=== PATIENT | male | born 1990 | race Hispanic/Latino ===

== ENCOUNTER 2017-03-01 18:40 | Emergency (ER) | payer OTHER ==
[~2017-03-01] VITALS: Ht 172.7 cm; Wt 90.9 kg
[~2017-03-01 18:40] MED LIST: HYDR-4003 PO; IBUP800T28 PO
[2017-03-01 18:45] VITALS: BP 176/91; PULSE 167; RESP 16; O2SAT 100
[2017-03-01] MEDS ORDERED: 0.9% Sodium Chloride 1,000 ML IV ONE (18:51)
--- NOTE | 2017-03-01 18:51 | ED.REPORT ---
HPI-Chest Pain Under 40 Date of Service Mar 01, 2017 ED Provider: Evan Jones DO The patient is a 26 year old male w/ a hx of anxiety and colitis who presents to the ED accompanied by his girlfriend due to chest pain onset earlier today. Associated symptoms include tachycardia and SOB. He is very anxious ." Pt describes that his heart begins racing when he goes on walks. The pt smokes marijuana and denies any other drug use. He denies fever, nausea, and vomiting. No history of coronary disease. No history of pulmonary embolus. No family history of aortic dissection. No ripping or tearing pain. Nursing Notes Stated Complaint: CHEST TIGHTNESS/PAIN Chief Complaint: Chest Pain Nursing Notes Reviewed: Yes Allergies: Coded Allergies: No Known Allergies (Unverified , 06/25/16) Scheduled PRN Hydrocodone-Acetaminophen 5-325 mg (Hydrocodone-Acetaminophen 5-325 mg) 1 Each Tablet 1-2 TABLET PO Q4H PRN PRN For Pain Ibuprofen (Ibuprofen) 800 Mg Tablet 800 MG PO TID PRN PRN For Pain General Time Seen by MD: 18:51 Chief Complaint Chest pain Hx Obtained From: Patient Arrived By: Walk-in Sudden in Onset?: Yes Onset Occurred: 1 week ago Symptom Duration: Since onset Location: : Chest left Quality: Painful Recent Healthcare: No recent doctor visit, No recent hospitalization Similar Sx Previous: No Past Medical History Past Medical History Colitis Past Surgical History None Family History Noncontributory Smoking History Never Smoker Social History Alcohol Use: Denies alcohol use Drug Use: Denies drug use (no meth or cocaine use. He does use THC), THC Other Social History: Good social support, , Local resident Ambulatory Status Independent Review of Systems Constitutional: Denies: Fever Respiratory: Denies: Dyspnea on exertion, Shortness of breath Cardiovascular: Reports: Chest pain, Palpitations GI: Denies: Abdominal pain, Diarrhea, Nausea, Vomiting Musculoskeletal: Denies: Back pain, Extremity pain Skin: Denies Bruising Neurologic: Denies: Abnormal movement, Confusion Psychiatric: Reports: Anxiety Complete sys rev & neg: except as marked. Physical Exam Initial Vital Signs Vital Signs (First) Date Time Temp Pulse Resp B/P Pulse Ox O2 Delivery O2 Flow Rate FiO2 03/01/17 18:45 36.7 167 16 176/91 100 Room Air Initial VS: Reviewed Head / Eyes: Atraumatic, Normocephalic ENT: Mucous membranes moist Abdomen / GI: Soft, Non-tender, No guarding, No rebound Extremities: Vascular intact, Neuro intact, No swelling Skin: Warm, Dry General/Constitutional: Awake, Alert Behavior: Positive: Anxious Respiratory / Chest: Atraumatic, Breath sounds NL, Breath sounds = bilat Cardiovascular: Heart rate NL, Regular rhythm, Heart sounds NL Interpretation & Diagnostics Lab Results Interpretation Result Diagram: 03/01/17 1855 03/01/17 1855 Test 03/01/17 18:55 03/01/17 20:04 03/01/17 22:40 White Blood Count 9.7th/mm3 (3.8-10.1) Red Blood Count 5.16mil/mm3 (4.40-5.80) Hemoglobin 15.9g/dL (13.8-17.2) Hematocrit 45.6% (41.0-50.0) Mean Corpuscular Volume 88.4fL (81-100) Mean Corpuscular Hemoglobin 30.8pg (27.0-35.0) Mean Corpuscular Hemoglobin Concent 34.9% (32.0-37.0) Red Cell Distribution Width 14.2% (12.3-15.4) Platelet Count 376bil/L (150-400) Neutrophils (%) (Auto) 57.6% (40-74) Lymphocytes (%) (Auto) 26.5% (14-46) Monocytes (%) (Auto) 11.1% (4-12) Eosinophils (%) (Auto) 4.3% (0-5) Basophils (%) (Auto) 0.3% (0-3) D-Dimer < 0.50mg/L FEU (<0.50) Sodium Level 138mEq/L (134-144) Potassium Level 3.4mEq/L (3.5-5.2) Chloride Level 100mEq/L (97-108) Carbon Dioxide Level 21mmol/L (18-29) Blood Urea Nitrogen 16mg/dL (6-20) Creatinine 0.81mg/dL (0.76-1.27) Estimat Glomerular Filtration Rate 121mL/min (>59) Glucose Level 140mg/dL (60-99) Calcium Level 9.8mg/dL (8.5-10.1) Magnesium Level 2.2mg/dL (1.6-2.6) Total Bilirubin 0.3mg/dL (0.0-1.2) Aspartate Amino Transf (AST/SGOT) 25U/L (0-50) Alanine Aminotransferase (ALT/SGPT) 36U/L (0-44) Alkaline Phosphatase 65U/L (25-150) Total Protein 8.0g/dL (6.4-8.4) Albumin 5.1g/dL (3.4-5.0) Hold Alfonso Top Tube Received (Received) Urine Opiates Screen Negative Urine Methadone Screen Negative Urine Barbiturates Screen Negative Urine Amphetamines Screen Negative Urine Benzodiazepines Screen Negative Urine Cocaine Metabolite Screen Negative Urine Cannabinoids Screen Positive Troponin T 0.010ug/L (0.0-0.011) ECG Interpretation Time: 18:52 Interpreted by: ED physician Rhythm / Conduction: Tachycardia (rate 123) X-Ray Chest Interpretation Chest Xray Interpretation: IMPRESSION: no acute findings View: Portable Interpretation / Wet Read by: Wet read ED physician Re-Eval/Medical Decision Med Decision/Clinical Course After 4 hrs of observation, troponin levels were unremarkable. Complete relief of symptoms w/ Ativan. Jonathon did great. Fluids and Ativan took care of his symptoms. His heart rate was in the 70s. His chest x-ray is normal. His d-dimer is negative. His well score is low risk. Aortic dissection and pulmonary emboli highly unlikely based on history and physical examination diagnostics. He has symmetric blood pressures in all limbs. He looked good. Oneco well. I think deconditioning and anxiety are playing a role in this. He smokes marijuana excessively and I recommend he stops this as well. Recommend outpatient follow-up. Short course of Xanax prescribed for severe anxiety symptoms. Routine sedative warnings given. Re-Evaluation/Progress : Time of Eval: 23:30 Patient Status: Complete relief Re-Evaluation/Progress Note: Pt rechecked. Informed pt of normal chest x-ray. Pt is resting comfortably in the room and agrees that his symptoms are probably related to anxiety. Bloodwork and repeat troponin is unremarkable. Plan for discharge. Pt understands and agrees with plan. Counseled Regarding: Diagnosis, Lab results, Need for follow-up, When/why to return to ED Discharge & Departure Primary Impression: Chest pain Chest pain type: unspecified Qualified Code: R07.9 - Chest pain, unspecified Additional Impressions: Tachycardia Anxiety Disposition: Home Discharge Condition All VS Reviewed: Yes Condition: Stable Patient Instructions: Chest Pain (ED), Generalized Anxiety Disorder (ED), Palpitations (ED) Additional Instructions: The EKG, heart blood tests, blood clot blood tests and chest x-ray were all reassuring. I suspect that your will heart races because #1) you smoke too much marijuana and #2) you are out of shape #3) you have anxiety. I suggested that you stop smoking so much. I suggested you start taking up aerobic exercise. You may take 1 Xanax every 8 hours as needed for severe anxiety symptoms. Call your doctor for follow-up this week. Do not drive or drink alcohol while taking the Xanax. Return if any problems or any new or worsening symptoms. Referrals: [facility] (PCP) [facility] Scribe Attestation Portion of this note were transcribed by Milena Vickers. I, Dr. Jones, personally performed the history, physical exam, and medical decision-making: I reviewed and confirmed the accuracy for the information in the transcribed note. Signed by: arian Noble, 03/01/17 2100 copies to: NOPERIC; [facility] Evan Jones DO Mar 01, 2017 18:51 Milena Vickers Mar 01, 2017 19:19
[2017-03-01 19:16] VITALS: BP 153/66; PULSE 94; RESP 16; O2SAT 100
[2017-03-01 19:16] LABS: BASOPHILS % (AUTO) 0.3 % (0-3); EOSINOPHILS % (AUTO) 4.3 % (0-5); MONOCYTES % (AUTO) 11.1 % (4-12); Mean Corpuscular Hemoglobin 30.8 pg (27.0-35.0); Mean Corpuscular Volume 88.4 fL (81-100); NEUTROPHILS % (AUTO) 57.6 % (40-74); Platelet Count 376 bil/L (150-400)
[2017-03-01 19:36] LABS: TROPONIN T < 0.010 ug/L (0.0-0.011)
[2017-03-01 19:45] LABS: Magnesium 2.2 mg/dL (1.6-2.6)
[2017-03-01 20:11] VITALS: BP 120/66; PULSE 78; RESP 13; O2SAT 100
[2017-03-01] MEDS ORDERED: 0.9% Sodium Chloride 1,000 ML IV SCH (21:25)
[2017-03-01 22:38] VITALS: BP 135/63; PULSE 90; RESP 17; O2SAT 99
[2017-03-01 23:47] VITALS: BP 134/80; PULSE 80; RESP 15; O2SAT 98
--- NOTE | 2017-03-02 09:06 | DRSVH ---
PROCEDURE: X-RAY CHEST ONE VIEW, PORTABLE ([id number]) INDICATIONS: chest pain, tachycardia TECHNIQUE: One view of the chest was acquired. COMPARISON: None. FINDINGS: Surgical changes and devices: None. Lungs and pleura: No pleural effusions or pneumothorax. Lungs are clear. Mediastinum: Mediastinal contours appear normal. Heart size is normal. Bones and chest wall: No suspicious bony lesions. Overlying soft tissues appear unremarkable. IMPRESSION: No acute cardiopulmonary disease. Dictated by: Greg Samayoa Sameera Interpreted: Tammy Rangel MD on 03/02/2017 at 9:05 Transcribed by: CHASITY on 03/02/2017 at 9:05 Approved by: Tamym Rangel M.D. on 03/02/2017 at 17:02
== END 2017-03-01 23:48 | disposition home or self-care (01) ==
LOC: SED 18:40
DX: R07.9 Chest pain, unspecified (principal); R00.0 Tachycardia, unspecified; F41.9 Anxiety disorder, unspecified; F12.20 Cannabis dependence, uncomplicated; Z87.19 Personal history of other diseases of the digestive system
CPT/HCPCS: 36415; 71010; 80053; 83735; 84484; 85025; 85378; 93005; 96361; 96374; 99285; G0480; J2060; J7030

== ENCOUNTER 2017-03-05 14:57 | Emergency (ER) | payer OTHER ==
[~2017-03-05] VITALS: Ht 172.7 cm; Wt 90.9 kg
[2017-03-05 15:02] VITALS: BP 157/104; PULSE 109; RESP 16; O2SAT 97
--- NOTE | 2017-03-05 15:15 | ED.REPORT ---
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 Became quite anxious by the rapid heart rate. Was seen 2 weeks ago in the emergency department for same with significant workup was unrevealing at that point. He was diagnosed with anxiety and given a prescription for Xanax. He did take 1 of these tablets prior to arrival in the emergency department today. He was concerned that his heart rate was in the 140s. His girlfriend any time his heart rate changes he focuses on his heart takes his pulse and it will cause his heart rate declined even higher. Over the last 2 weeks he made some dramatic changes to diet exercise and has completely stop smoking marijuana. He has had very little to eat or drink today and was a bit stressed about an upcoming doctor appointment working harder so that he could finish in time to make that appointment Nursing Notes Stated Complaint: RAPID HEART RATE Chief Complaint: Dysrhythmia/Cardiac Allergies: Coded Allergies: No Known Allergies (Unverified , 06/25/16) Scheduled PRN Hydrocodone-Acetaminophen 5-325 mg (Hydrocodone-Acetaminophen 5-325 mg) 1 Each Tablet 1-2 TABLET PO Q4H PRN PRN For Pain Ibuprofen (Ibuprofen) 800 Mg Tablet 800 MG PO TID PRN PRN For Pain General Time Seen by MD: 15:12 Chief Complaint Other Rapid heart rate Hx Obtained From: Patient Arrived By: Walk-in Sudden in Onset?: Yes Onset Occurred: 1 - 4 hours ago Past Medical History Past Medical History Colitis Past Surgical History None Family History Noncontributory Smoking History Never Smoker Social History Alcohol Use: Denies alcohol use Drug Use: Denies drug use, THC Other Social History: Good social support, , Local resident Ambulatory Status Independent Review of Systems No chest pain no shortness of breath, no fevers no diaphoresis no change to bowel or bladder habits no skin rashes Complete sys rev & neg: except as marked. Physical Exam Vital Signs Vital Signs Date Time Temp Pulse Resp B/P Pulse Ox O2 Delivery O2 Flow Rate FiO2 03/05/17 16:24 94 16 146/98 98 Room Air 03/05/17 16:04 94 16 146/98 98 Room Air 03/05/17 15:02 36.6 109 16 157/104 97 Room Air Initial VS: Reviewed General/Constitutional: Well-developed, Well-nourished Head / Eyes: Atraumatic, Normocephalic, PERRL ENT: Mucous membranes moist Neck: Supple Respiratory: Breath sounds normal, Clear to auscultation, No respiratory distress Cardiovascular: Heart sounds normal (mildly tachycardic in the 110 range slowing to the 80 range of the end of our exam and discussion), Intact distal pulses Abdomen / GI: Soft Lymphatic: No lymphadenopathy Extremities: Vascular intact, Neuro intact Skin: Warm, Dry Neurologic: Alert, Oriented, Nonfocal Psychiatric: Mood/affect normal, Behavior normal, Normal thought content Interpretation & Diagnostics ECG Interpretation Interpreted by: ED physician Normal ECG Interpretation: Normal rate, Normal sinus rhythm, No acute ischemic changes Discharge & Departure Primary Impression: Anxiety Additional Impression: Tachycardia Disposition: Home Additional Instructions: Thank you for coming in today. Your EKG is nice and normal. Your heart rate has come down nicely. You have a very thorough work up with your last visit and there is no need to repeat any of this. I'm really impressed that you decided to make so many positive changes after your last visit! No caffeine, energy drinks, eating better and no more smoking. You do need to make sure you stay hydrated when you are working. You need enough water to keep your urine light yellow. We talked about looking up and using some of the stress/meditation apps available so you can prevent the rapid heart rate in the first place. If it should happen again, please remember that you are healthy, you have had a full evaluation and your heart is healthy. Keep up all those healthy life changes! Referrals: Mono Frausto DO (PCP) Attending Statement pt seen and examined. Agree with assessment and discharge plan as above copies to: Mono Frausto Shawna L MD March 05, 2017 15:15
[2017-03-05 16:04] VITALS: BP 146/98; PULSE 94; RESP 16; O2SAT 98
[2017-03-05 16:24] VITALS: BP 146/98; PULSE 94; RESP 16; O2SAT 98
== END 2017-03-05 16:26 | disposition home or self-care (01) ==
LOC: SED 14:57
DX: F41.9 Anxiety disorder, unspecified (principal); R00.0 Tachycardia, unspecified